=== PATIENT | female | born 1940 | race Caucasian/White ===

== ENCOUNTER 2018-06-15 09:19 | Emergency (ER) | payer OTHER ==
[~2018-06-15] VITALS: Ht 165.1 cm; Wt 59.0 kg
[2018-06-15 14:08] VITALS: BP 124/63
== END 2018-06-15 14:47 | disposition home or self-care (01) ==
LOC: ER 09:19
DX: S66.911A Strain of unspecified muscle, fascia and tendon at wrist and hand level, right hand, initial encounter (principal); R51 Headache; J44.9 Chronic obstructive pulmonary disease, unspecified; I10 Essential (primary) hypertension; F17.210 Nicotine dependence, cigarettes, uncomplicated; W22.8XXA Striking against or struck by other objects, initial encounter; Y93.89 Activity, other specified; Y92.89 Other specified places as the place of occurrence of the external cause; Y99.8 Other external cause status
CPT/HCPCS: 29125; 70450; 73090; 73110; 73200

== ENCOUNTER 2020-09-02 09:07 | Emergency (ER) | payer OTHER ==
[~2020-09-02] VITALS: Ht 165.1 cm; Wt 54.4 kg
[~2020-09-02 09:07] MED LIST: ASPI-543 PO; ATEN-60 PO; BIOT5TAB3 PO; CALCTAB62 PO; CHOL400L8 PO; CYA100I PO; HYDR-4833 PO; LORA2TAB89 PO; MAGN400T40 PO; PAR20T PO; ROSU5TAB5 PO; SACC1CAP3 PO; TRAZ100T3 PO
[2020-09-02 09:41] LABS: Basophils # (auto) 0 10 ^3/uL (0-0.2); Basophils % (auto) 0.2 % (0.0-2.0); Eosinophils # (auto) 0 10 ^3/uL (0-0.8); Eosinophils % (auto) 0.2 % (0.0-7.0); Hematocrit 40.2 % (36.0-46.0); Hemoglobin 12.8 g/dL (12.2-16.2); Lymphocytes % (auto) 7.6 % (10.0-50.0); Mean Corpuscular Hemoglobin 29.6 pg (28.0-32.0); Mean Corpuscular Hgb Conc. 31.9 g/dL (32.0-36.0); Mean Corpuscular Volume 92.5 fL (80.0-100.0); Monocytes # (auto) 1.9 10 ^3/uL (0-1.3); Monocytes % (auto) 13.6 % (0.0-12.0); Neutrophils # (auto) 10.6 10 ^3/uL (1.6-8.6); Neutrophils % (auto) 78.4 % (37.0-80.0); Platelet Count (auto) 233 10^3/uL (140-450); Red Blood Cells 4.34 10^6/uL (4.0-5.20); Red Cell Distribution Width 17.9 % (11.8-14.3); White Blood Cell 13.6 10^3/uL (4.4-10.8)
[2020-09-02 10:02] LABS: Alanine Aminotransferase 49 U/L (13-56); Albumin 4.5 g/dL (3.4-5.0); Anion Gap 14 (5-15); Aspartate Aminotransferase 68 U/L (15-37); BUN/Creatinine Ratio 28.8; Blood Urea Nitrogen 23 mg/dL (7-18); Calcium 8.6 mg/dL (8.5-10.1); Carbon Dioxide 17 mmol/L (21-32); Chloride 109 mmol/L (98-107); GFR African American 89 mL/min; GFR Non-African American 74 mL/min; Glucose 102 mg/dL (74-106); Potassium 4.1 mmol/L (3.5-5.1); Sodium 140 mmol/L (136-145)
[2020-09-02 10:08] LABS: Alkaline Phosphatase 96 U/L (45-117); Bilirubin, Total 1.2 mg/dL (0.2-1.0); Total Protein 7.5 g/dL (6.4-8.2)
[2020-09-02] MEDS ORDERED: BACITRACIN TOP OINT 1 UD PKG TOP ONE (11:30)
[2020-09-02] MEDS ORDERED: LIDOCAINE 2%HCL (LOCAL ANESTH.) INJ 20ML MDV ID ONE (11:30)
[2020-09-02] MEDS ORDERED: LORazepam 0.5 MG TAB PO ONE (11:45)
[2020-09-02 12:45] VITALS: BP 140/61
== END 2020-09-02 16:29 | disposition home or self-care (01) ==
LOC: ER 09:07
DX: S41.112A Laceration without foreign body of left upper arm, initial encounter (principal); M21.332 Wrist drop, left wrist; F10.10 Alcohol abuse, uncomplicated; J44.9 Chronic obstructive pulmonary disease, unspecified; I10 Essential (primary) hypertension; R41.82 Altered mental status, unspecified; F17.210 Nicotine dependence, cigarettes, uncomplicated; Z98.61 Coronary angioplasty status; W01.0XXA Fall on same level from slipping, tripping and stumbling without subsequent striking against object, initial encounter; Y93.89 Activity, other specified; Y92.098 Other place in other non-institutional residence as the place of occurrence of the external cause; Y99.8 Other external cause status
CPT/HCPCS: 12004; 29125; 36415; 70450; 80053; 80320; 84484; 85025

== ENCOUNTER 2020-11-12 11:25 | Inpatient (IN) | payer BC, OTHER ==
[~2020-11-12] VITALS: Ht 165.1 cm; Wt 59.7 kg
[2020-11-12] MEDS ORDERED: methylPREDNISolone SOD SUCC 125 MG/2 ML VL IV ONE (11:45)
[2020-11-12] MEDS ORDERED: AZITHROMYCIN 500MG/ 250ML 250 ML IV ONE (12:15)
[2020-11-12] MEDS ORDERED: REMDESIVIR PER PHARMACY 0 ML IV SCH ×2 (12:15→16:30)
[2020-11-12 12:28] LABS: Basophils # (auto) 0 10 ^3/uL (0-0.2); Basophils % (auto) 0.2 % (0.0-2.0); Eosinophils # (auto) 0.2 10 ^3/uL (0-0.8); Eosinophils % (auto) 1.6 % (0.0-7.0); Hemoglobin 12.8 g/dL (12.2-16.2); Lymphocytes # (auto) 0.6 10 ^3/uL (0.4-5.4); Lymphocytes % (auto) 4.2 % (10.0-50.0); Mean Corpuscular Hemoglobin 28.4 pg (28.0-32.0); Mean Corpuscular Hgb Conc. 32.7 g/dL (32.0-36.0); Mean Corpuscular Volume 86.8 fL (80.0-100.0); Monocytes # (auto) 1.2 10 ^3/uL (0-1.3); Monocytes % (auto) 9.1 % (0.0-12.0); Neutrophils # (auto) 11.6 10 ^3/uL (1.6-8.6); Neutrophils % (auto) 84.9 % (37.0-80.0); Platelet Count (auto) 377 10^3/uL (140-450); Red Cell Distribution Width 16.1 % (11.8-14.3); White Blood Cell 13.7 10^3/uL (4.4-10.8)
[2020-11-12 12:55] LABS: Albumin 2.4 g/dL (3.4-5.0); Calcium 8.4 mg/dL (8.5-10.1); Potassium 3.3 mmol/L (3.5-5.1)
[2020-11-12 12:58] LABS: Lactic Acid w/Reflex 2.1 mmol/L (0.4-2.0)
[2020-11-12 13:01] LABS: BUN/Creatinine Ratio 23.2; Bilirubin, Total 0.7 mg/dL (0.2-1.0); Total Protein 6.8 g/dL (6.4-8.2)
[2020-11-12] MEDS ORDERED: POTASSIUM CHL 20 Meq TABLET PO ONE (13:15)
[2020-11-12] MEDS ORDERED: MORPHINE SULF INJ 2 MG/ML SYRINGE 1ML IV PRN ×2 (16:30)
[2020-11-12] MEDS ORDERED: DOCUSATE SOD 100 MG CAP PO PRN (16:30)
[2020-11-12] MEDS ORDERED: NITROGLYCERIN 0.4 MG SL TAB SL PRN (16:30)
[2020-11-12] MEDS ORDERED: ALUM & MAG HYDROX-SIMETH LIQ(MAALOX) 30 ML PO PRN (16:30)
[2020-11-12] MEDS ORDERED: ACETAMINOPHEN 500 MG TAB PO PRN (16:30)
[2020-11-12 16:51] LABS: Magnesium 2.2 mg/dL (1.6-2.6)
[2020-11-12 17:00] LABS: CRP High Sensitivity 15.8 mg/dL (< 0.3)
[2020-11-12] MEDS ORDERED: IOHEXOL 350 MG/ML 100ML IJ ONE (17:00)
[2020-11-12] MEDS ORDERED: ONDANSETRON HCL 4 MG/2 ML VIAL ONE (21:58)
[2020-11-12] MEDS ORDERED: ENOXAPARIN SOD 40 MG/0.4 ML SYRINGE SC SCH (22:00)
[2020-11-12] MEDS: BUDESONIDE (INHALATION) 180 MCG IH IN SCH (22:00)
[2020-11-12] MEDS: DOXYCYCLINE 100MG/250ML 250 ML IV SCH (22:40)
[2020-11-12] MEDS: FAMOTIDINE (10MG/ML) 2ML VL IV SCH (22:40)
[2020-11-12] MEDS: ENOXAPARIN SOD 60 MG/0.6 ML SYRINGE SC SCH (22:40)
[2020-11-12] MEDS ORDERED: ONDANSETRON HCL 4 MG/2 ML VIAL IV PRN (23:15)
[2020-11-13 04:35] LABS: Urine Bacteria FEW /hpf (None Seen); Urine Blood Negative /uL (Negative); Urine WBC 6 /hpf (0 - 5)
[2020-11-13 04:48] LABS: Urine Specific Gravity > 1.050 (1.001-1.035)
[2020-11-13] MEDS: BUDESONIDE (INHALATION) 180 MCG IH IN SCH ×2 (06:50→20:20)
[2020-11-13 07:59] LABS: Basophils # (auto) 0 10 ^3/uL (0-0.2); Eosinophils # (auto) 0 10 ^3/uL (0-0.8); Eosinophils % (auto) 0.1 % (0.0-7.0); Hematocrit 34.3 % (36.0-46.0); Hemoglobin 11.3 g/dL (12.2-16.2); Lymphocytes # (auto) 0.5 10 ^3/uL (0.4-5.4); Mean Corpuscular Hemoglobin 28.4 pg (28.0-32.0); Mean Corpuscular Volume 85.9 fL (80.0-100.0); Monocytes # (auto) 0.9 10 ^3/uL (0-1.3); Monocytes % (auto) 6.6 % (0.0-12.0); Neutrophils # (auto) 11.9 10 ^3/uL (1.6-8.6); Neutrophils % (auto) 89.3 % (37.0-80.0); Nucleated Red Blood Cells % 0.1 %; Platelet Count (auto) 355 10^3/uL (140-450); Red Cell Distribution Width 15.9 % (11.8-14.3); White Blood Cell 13.4 10^3/uL (4.4-10.8)
[2020-11-13 08:21] LABS: Albumin 2.2 g/dL (3.4-5.0); BUN/Creatinine Ratio 35.3; Bilirubin, Total 0.5 mg/dL (0.2-1.0); Calcium 8.2 mg/dL (8.5-10.1); Total Protein 6.1 g/dL (6.4-8.2)
[2020-11-13] MEDS: FAMOTIDINE (10MG/ML) 2ML VL IV SCH (10:23)
[2020-11-13] MEDS: DexAMETHasone SOD PHOS 10MG/1ML VIAL INJ IV SCH (10:23)
[2020-11-13] MEDS: CHOLECALCIFEROL (VITD3) 2,000 UNIT CAP PO SCH (10:24)
[2020-11-13] MEDS: ZINC SULFATE 220mg CAP or TAB PO SCH (10:24)
[2020-11-13] MEDS: ASCORBIC ACID 1,000 MG TAB PO SCH (10:24)
[2020-11-13] MEDS: ENOXAPARIN SOD 60 MG/0.6 ML SYRINGE SC SCH ×2 (10:24→22:43)
[2020-11-13] MEDS: DOXYCYCLINE 100MG/250ML 250 ML IV SCH ×2 (10:24→22:58)
[2020-11-13] MEDS ORDERED: CLOP75TA70 PO (11:29)
[2020-11-13] MEDS ORDERED: HYDR-392 PO (11:31)
[2020-11-13] MEDS ORDERED: CYAN1TAB11 PO (11:35)
[2020-11-13] MEDS ORDERED: ASCO500T5 PO (11:35)
[2020-11-13] MEDS ORDERED: CHOL20009 PO (11:35)
[2020-11-13] MEDS ORDERED: THIA100T10 PO (11:42)
[2020-11-13] MEDS ORDERED: REMDESIVIR 200 MG in NS 210ml LOADING DOSE ADULT IV ONE (15:00)
[2020-11-13 19:30] VITALS: BP 118/59
[2020-11-13] MEDS: ALBUTEROL SULF HFA 90MCG INH 200DOSE IN PRN (20:20)
[2020-11-13] MEDS: HYDROcodone-ACET 5/325MG TAB PO PRN (23:06)
[2020-11-14 00:47] VITALS: BP 99/49
[2020-11-14] MEDS: BUDESONIDE (INHALATION) 180 MCG IH IN SCH ×2 (07:07→20:35)
[2020-11-14] MEDS: ALBUTEROL SULF HFA 90MCG INH 200DOSE IN PRN (07:07)
[2020-11-14 07:53] LABS: INR 1.07 (0.9-1.15); Partial Thromboplastin Time 25.5 sec (23.0-31.2)
[2020-11-14 07:59] LABS: Basophils # (auto) 0 10 ^3/uL (0-0.2); Basophils % (auto) 0.1 % (0.0-2.0); Eosinophils # (auto) 0 10 ^3/uL (0-0.8); Eosinophils % (auto) 0.1 % (0.0-7.0); Hemoglobin 11.8 g/dL (12.2-16.2); Lymphocytes # (auto) 0.4 10 ^3/uL (0.4-5.4); Lymphocytes % (auto) 2.4 % (10.0-50.0); Mean Corpuscular Hgb Conc. 32.3 g/dL (32.0-36.0); Monocytes # (auto) 1.2 10 ^3/uL (0-1.3); Neutrophils # (auto) 14.9 10 ^3/uL (1.6-8.6); Red Cell Distribution Width 15.8 % (11.8-14.3)
[2020-11-14 08:00] VITALS: BP 135/58
[2020-11-14 08:00] LABS: Hematocrit 36.4 % (36.0-46.0); Mean Corpuscular Hemoglobin 28.1 pg (28.0-32.0); Monocytes % (auto) 7.5 % (0.0-12.0); Neutrophils % (auto) 89.9 % (37.0-80.0); Platelet Count (auto) 448 10^3/uL (140-450); Red Blood Cells 4.19 10^6/uL (4.0-5.20); White Blood Cell 16.5 10^3/uL (4.4-10.8)
[2020-11-14 09:00] VITALS: BP 135/58
[2020-11-14] MEDS: DexAMETHasone SOD PHOS 10MG/1ML VIAL INJ IV SCH (09:10)
[2020-11-14] MEDS: FAMOTIDINE (10MG/ML) 2ML VL IV SCH (09:10)
[2020-11-14] MEDS: ZINC SULFATE 220mg CAP or TAB PO SCH (09:11)
[2020-11-14] MEDS: CHOLECALCIFEROL (VITD3) 2,000 UNIT CAP PO SCH (09:11)
[2020-11-14] MEDS: ASCORBIC ACID 1,000 MG TAB PO SCH (09:11)
[2020-11-14] MEDS: ENOXAPARIN SOD 60 MG/0.6 ML SYRINGE SC SCH ×2 (09:11→21:39)
[2020-11-14] MEDS: DOXYCYCLINE 100MG/250ML 250 ML IV SCH ×2 (10:36→21:38)
[2020-11-14] MEDS: HYDROcodone-ACET 5/325MG TAB PO PRN ×2 (13:27→21:42)
[2020-11-14 14:48] LABS: Albumin 2.4 g/dL (3.4-5.0); Calcium 8.4 mg/dL (8.5-10.1); Potassium 4.1 mmol/L (3.5-5.1)
[2020-11-14 14:53] LABS: BUN/Creatinine Ratio 30.9; Bilirubin, Total 0.6 mg/dL (0.2-1.0); Total Protein 6.4 g/dL (6.4-8.2)
[2020-11-14 16:00] VITALS: BP 132/51
[2020-11-14] MEDS: REMDESIVIR 100mg 100 MG in SODIUM CHL 0.9% 230 ML IV SCH (16:03)
[2020-11-14 16:12] VITALS: BP 132/51
[2020-11-14] MEDS: guaiFENesin-DM 100/10mg/5ml SYR PO PRN ×2 (17:49→21:44)
[2020-11-14] MEDS: ALBUTEROL SULF HFA 90MCG INH 200DOSE IN SCH (20:35)
[2020-11-15] VITALS: BP 118/55
[2020-11-15] MEDS: guaiFENesin-DM 100/10mg/5ml SYR PO PRN ×2 (06:36→21:20)
[2020-11-15] MEDS: HYDROcodone-ACET 5/325MG TAB PO PRN ×3 (06:36→21:21)
[2020-11-15] MEDS: ALBUTEROL SULF HFA 90MCG INH 200DOSE IN SCH ×3 (06:52→22:19)
[2020-11-15] MEDS: BUDESONIDE (INHALATION) 180 MCG IH IN SCH ×2 (06:52→22:19)
[2020-11-15 07:57] VITALS: BP 136/61
[2020-11-15 08:42] LABS: Basophils # (auto) 0 10 ^3/uL (0-0.2); Eosinophils # (auto) 0.1 10 ^3/uL (0-0.8); Lymphocytes # (auto) 0.5 10 ^3/uL (0.4-5.4); Platelet Count (auto) 475 10^3/uL (140-450)
[2020-11-15 08:47] LABS: Eosinophils % (auto) 0.6 % (0.0-7.0); Hematocrit 38.1 % (36.0-46.0); Hemoglobin 12.5 g/dL (12.2-16.2); Lymphocytes % (auto) 2.9 % (10.0-50.0); Mean Corpuscular Hemoglobin 28.2 pg (28.0-32.0); Mean Corpuscular Hgb Conc. 32.7 g/dL (32.0-36.0); Mean Corpuscular Volume 86.1 fL (80.0-100.0); Monocytes # (auto) 1.2 10 ^3/uL (0-1.3); Monocytes % (auto) 6.9 % (0.0-12.0); Neutrophils # (auto) 15.3 10 ^3/uL (1.6-8.6); Neutrophils % (auto) 89.6 % (37.0-80.0); Red Blood Cells 4.42 10^6/uL (4.0-5.20); Red Cell Distribution Width 15.7 % (11.8-14.3); White Blood Cell 17.1 10^3/uL (4.4-10.8)
[2020-11-15 09:06] LABS: INR 1.12 (0.9-1.15); Partial Thromboplastin Time 25.3 sec (23.0-31.2)
[2020-11-15 09:08] LABS: Albumin 2.6 g/dL (3.4-5.0); Calcium 8.4 mg/dL (8.5-10.1); Potassium 3.5 mmol/L (3.5-5.1)
[2020-11-15 09:12] LABS: BUN/Creatinine Ratio 28.3; Bilirubin, Total 0.7 mg/dL (0.2-1.0); Total Protein 6.6 g/dL (6.4-8.2)
[2020-11-15] MEDS: DOXYCYCLINE 100MG/250ML 250 ML IV SCH ×2 (11:49→21:20)
[2020-11-15] MEDS: DexAMETHasone SOD PHOS 10MG/1ML VIAL INJ IV SCH (11:49)
[2020-11-15] MEDS: ZINC SULFATE 220mg CAP or TAB PO SCH (11:49)
[2020-11-15] MEDS: FAMOTIDINE (10MG/ML) 2ML VL IV SCH (11:49)
[2020-11-15] MEDS: CHOLECALCIFEROL (VITD3) 2,000 UNIT CAP PO SCH (11:50)
[2020-11-15] MEDS: ASCORBIC ACID 1,000 MG TAB PO SCH (11:50)
[2020-11-15] MEDS: ENOXAPARIN SOD 60 MG/0.6 ML SYRINGE SC SCH ×2 (11:50→21:20)
[2020-11-15] MEDS: REMDESIVIR 100mg 100 MG in SODIUM CHL 0.9% 230 ML IV SCH (14:36)
[2020-11-15 16:03] VITALS: BP 135/69
[2020-11-16] VITALS: BP 116/63
[2020-11-16] MEDS: guaiFENesin-DM 100/10mg/5ml SYR PO PRN ×3 (04:53→22:30)
[2020-11-16] MEDS: HYDROcodone-ACET 5/325MG TAB PO PRN ×3 (04:54→22:31)
[2020-11-16] MEDS: ALBUTEROL SULF HFA 90MCG INH 200DOSE IN SCH ×3 (07:45→19:59)
[2020-11-16] MEDS: BUDESONIDE (INHALATION) 180 MCG IH IN SCH ×2 (07:45→19:59)
[2020-11-16 08:00] VITALS: BP 140/69
[2020-11-16 08:32] LABS: Basophils # (auto) 0.1 10 ^3/uL (0-0.2); Basophils % (auto) 0.3 % (0.0-2.0); Eosinophils # (auto) 0.2 10 ^3/uL (0-0.8); Eosinophils % (auto) 0.9 % (0.0-7.0); Hematocrit 35.4 % (36.0-46.0); Hemoglobin 11.9 g/dL (12.2-16.2); Lymphocytes # (auto) 0.6 10 ^3/uL (0.4-5.4); Lymphocytes % (auto) 3.7 % (10.0-50.0); Mean Corpuscular Hemoglobin 28.7 pg (28.0-32.0); Mean Corpuscular Hgb Conc. 33.6 g/dL (32.0-36.0); Mean Corpuscular Volume 85.5 fL (80.0-100.0); Monocytes # (auto) 1.3 10 ^3/uL (0-1.3); Monocytes % (auto) 7.6 % (0.0-12.0); Neutrophils # (auto) 15.3 10 ^3/uL (1.6-8.6); Neutrophils % (auto) 87.5 % (37.0-80.0); Platelet Count (auto) 412 10^3/uL (140-450); Red Blood Cells 4.14 10^6/uL (4.0-5.20); Red Cell Distribution Width 15.8 % (11.8-14.3); White Blood Cell 17.4 10^3/uL (4.4-10.8)
[2020-11-16 09:02] LABS: Potassium 3.8 mmol/L (3.5-5.1)
[2020-11-16 09:18] LABS: Albumin 2.3 g/dL (3.4-5.0); BUN/Creatinine Ratio 39.5; Bilirubin, Total 0.7 mg/dL (0.2-1.0); CRP High Sensitivity 12.6 mg/dL (< 0.3); Calcium 8.2 mg/dL (8.5-10.1); Total Protein 6.4 g/dL (6.4-8.2)
[2020-11-16] MEDS: DexAMETHasone SOD PHOS 10MG/1ML VIAL INJ IV SCH (10:36)
[2020-11-16] MEDS: CHOLECALCIFEROL (VITD3) 2,000 UNIT CAP PO SCH (10:36)
[2020-11-16] MEDS: FAMOTIDINE (10MG/ML) 2ML VL IV SCH (10:36)
[2020-11-16] MEDS: ASCORBIC ACID 1,000 MG TAB PO SCH (10:36)
[2020-11-16] MEDS: ZINC SULFATE 220mg CAP or TAB PO SCH (10:36)
[2020-11-16] MEDS: DOXYCYCLINE 100MG/250ML 250 ML IV SCH ×2 (10:37→22:30)
[2020-11-16] MEDS: ENOXAPARIN SOD 60 MG/0.6 ML SYRINGE SC SCH ×2 (10:38→22:29)
[2020-11-16 15:52] LABS: Albumin 2.4 g/dL (3.4-5.0); Calcium 8.2 mg/dL (8.5-10.1); Potassium 3.9 mmol/L (3.5-5.1)
[2020-11-16 15:55] LABS: BUN/Creatinine Ratio 30.4; Bilirubin, Total 0.8 mg/dL (0.2-1.0); Total Protein 6.4 g/dL (6.4-8.2)
[2020-11-16 16:00] VITALS: BP 152/68
[2020-11-16] MEDS: REMDESIVIR 100mg 100 MG in SODIUM CHL 0.9% 230 ML IV SCH (17:00)
[2020-11-17] MEDS: HYDROcodone-ACET 5/325MG TAB PO PRN ×3 (02:27→19:28)
[2020-11-17] MEDS: guaiFENesin-DM 100/10mg/5ml SYR PO PRN ×2 (02:27→19:29)
[2020-11-17 05:40] LABS: Basophils # (auto) 0 10 ^3/uL (0-0.2); Basophils % (auto) 0.2 % (0.0-2.0); Eosinophils # (auto) 0.1 10 ^3/uL (0-0.8); Eosinophils % (auto) 0.8 % (0.0-7.0); Hematocrit 35.8 % (36.0-46.0); Hemoglobin 11.5 g/dL (12.2-16.2); Lymphocytes # (auto) 0.6 10 ^3/uL (0.4-5.4); Lymphocytes % (auto) 3.8 % (10.0-50.0); Mean Corpuscular Hemoglobin 27.3 pg (28.0-32.0); Mean Corpuscular Hgb Conc. 32.1 g/dL (32.0-36.0); Mean Corpuscular Volume 85.2 fL (80.0-100.0); Monocytes # (auto) 1.2 10 ^3/uL (0-1.3); Monocytes % (auto) 7.8 % (0.0-12.0); Neutrophils # (auto) 13.6 10 ^3/uL (1.6-8.6); Neutrophils % (auto) 87.4 % (37.0-80.0); Platelet Count (auto) 420 10^3/uL (140-450); Red Blood Cells 4.21 10^6/uL (4.0-5.20); White Blood Cell 15.6 10^3/uL (4.4-10.8)
[2020-11-17 05:58] LABS: Albumin 2.1 g/dL (3.4-5.0); Calcium 7.8 mg/dL (8.5-10.1); Potassium 3.7 mmol/L (3.5-5.1)
[2020-11-17 06:01] LABS: BUN/Creatinine Ratio 33.3; Bilirubin, Total 0.6 mg/dL (0.2-1.0); Total Protein 5.7 g/dL (6.4-8.2)
[2020-11-17] MEDS: BUDESONIDE (INHALATION) 180 MCG IH IN SCH ×2 (07:06→19:21)
[2020-11-17] MEDS: ALBUTEROL SULF HFA 90MCG INH 200DOSE IN SCH ×3 (07:06→19:21)
[2020-11-17 08:00] VITALS: BP 158/76
[2020-11-17] MEDS: CHOLECALCIFEROL (VITD3) 2,000 UNIT CAP PO SCH (10:02)
[2020-11-17] MEDS: ENOXAPARIN SOD 60 MG/0.6 ML SYRINGE SC SCH ×2 (10:03→21:15)
[2020-11-17] MEDS: FAMOTIDINE (10MG/ML) 2ML VL IV SCH (10:03)
[2020-11-17] MEDS: ASCORBIC ACID 1,000 MG TAB PO SCH (10:03)
[2020-11-17] MEDS: DexAMETHasone SOD PHOS 10MG/1ML VIAL INJ IV SCH (10:03)
[2020-11-17] MEDS: ZINC SULFATE 220mg CAP or TAB PO SCH (10:03)
[2020-11-17] MEDS: DOXYCYCLINE 100MG/250ML 250 ML IV SCH (10:03)
[2020-11-17 14:57] LABS: Albumin 2.2 g/dL (3.4-5.0)
[2020-11-17 15:01] LABS: BUN/Creatinine Ratio 31.1; Bilirubin, Total 0.7 mg/dL (0.2-1.0); Total Protein 6.2 g/dL (6.4-8.2)
[2020-11-17] MEDS: REMDESIVIR 100mg 100 MG in SODIUM CHL 0.9% 230 ML IV SCH (15:31)
[2020-11-17 16:00] VITALS: BP 138/69
[2020-11-17] MEDS: ASPirin-EC 81 mg tab PO SCH (21:15)
[2020-11-18] VITALS: BP 139/65
[2020-11-18] MEDS: HYDROcodone-ACET 5/325MG TAB PO PRN ×4 (01:56→20:56)
[2020-11-18] MEDS: guaiFENesin-DM 100/10mg/5ml SYR PO PRN ×3 (01:56→20:55)
[2020-11-18] MEDS: BUDESONIDE (INHALATION) 180 MCG IH IN SCH ×2 (07:39→22:00)
[2020-11-18] MEDS: ALBUTEROL SULF HFA 90MCG INH 200DOSE IN SCH ×2 (07:39→22:00)
[2020-11-18 08:00] VITALS: BP 149/71
[2020-11-18 08:30] LABS: Basophils # (auto) 0 10 ^3/uL (0-0.2); Basophils % (auto) 0.2 % (0.0-2.0); Eosinophils # (auto) 0 10 ^3/uL (0-0.8); Eosinophils % (auto) 0.2 % (0.0-7.0); Hemoglobin 12.2 g/dL (12.2-16.2); Lymphocytes # (auto) 0.7 10 ^3/uL (0.4-5.4)
[2020-11-18 08:31] LABS: Hematocrit 37.1 % (36.0-46.0); Mean Corpuscular Hemoglobin 28.1 pg (28.0-32.0); Mean Corpuscular Volume 85.3 fL (80.0-100.0); Monocytes # (auto) 1.3 10 ^3/uL (0-1.3); Monocytes % (auto) 11.2 % (0.0-12.0); Neutrophils # (auto) 9.8 10 ^3/uL (1.6-8.6); Neutrophils % (auto) 82.4 % (37.0-80.0); Nucleated Red Blood Cells % 0.1 %; Platelet Count (auto) 466 10^3/uL (140-450); Red Blood Cells 4.34 10^6/uL (4.0-5.20); White Blood Cell 11.8 10^3/uL (4.4-10.8)
[2020-11-18 09:09] LABS: Albumin 2.3 g/dL (3.4-5.0); BUN/Creatinine Ratio 46.2; Calcium 8.1 mg/dL (8.5-10.1)
[2020-11-18 09:11] LABS: Bilirubin, Total 0.5 mg/dL (0.2-1.0); Total Protein 6.3 g/dL (6.4-8.2)
[2020-11-18] MEDS: FAMOTIDINE (10MG/ML) 2ML VL IV SCH (10:00)
[2020-11-18] MEDS: CHOLECALCIFEROL (VITD3) 2,000 UNIT CAP PO SCH (10:00)
[2020-11-18] MEDS: ASCORBIC ACID 1,000 MG TAB PO SCH (10:00)
[2020-11-18] MEDS: DexAMETHasone SOD PHOS 10MG/1ML VIAL INJ IV SCH (10:00)
[2020-11-18] MEDS: ZINC SULFATE 220mg CAP or TAB PO SCH (10:00)
[2020-11-18] MEDS: ENOXAPARIN SOD 60 MG/0.6 ML SYRINGE SC SCH ×2 (10:00→21:19)
[2020-11-18 16:00] VITALS: BP 157/75
[2020-11-18] MEDS: ASPirin-EC 81 mg tab PO SCH (21:19)
[2020-11-18] MEDS ORDERED: ATORVASTATIN 20 MG TAB PO SCH (23:00)
[2020-11-19] VITALS: BP 139/74
[2020-11-19 00:30] VITALS: BP 139/74
[2020-11-19] MEDS: guaiFENesin-DM 100/10mg/5ml SYR PO PRN (06:32)
[2020-11-19] MEDS: HYDROcodone-ACET 5/325MG TAB PO PRN (06:32)
[2020-11-19] MEDS: ALBUTEROL SULF HFA 90MCG INH 200DOSE IN SCH ×3 (06:46→22:00)
[2020-11-19] MEDS: BUDESONIDE (INHALATION) 180 MCG IH IN SCH ×2 (06:46→22:00)
[2020-11-19 08:00] VITALS: BP 147/63
[2020-11-19] MEDS: ASCORBIC ACID 1,000 MG TAB PO SCH (10:00)
[2020-11-19] MEDS: ENOXAPARIN SOD 60 MG/0.6 ML SYRINGE SC SCH (10:00)
[2020-11-19] MEDS: CHOLECALCIFEROL (VITD3) 2,000 UNIT CAP PO SCH (10:00)
[2020-11-19] MEDS ORDERED: THIAMINE HCL 100 MG TAB PO SCH (10:00)
[2020-11-19] MEDS: DexAMETHasone SOD PHOS 10MG/1ML VIAL INJ IV SCH (10:00)
[2020-11-19] MEDS: FAMOTIDINE (10MG/ML) 2ML VL IV SCH (10:00)
[2020-11-19] MEDS: ZINC SULFATE 220mg CAP or TAB PO SCH (10:00)
[2020-11-19] MEDS ORDERED: PARoxetine 20 MG TAB PO SCH (10:00)
[2020-11-19] MEDS ORDERED: ATENOLOL 25 MG TAB PO SCH (10:00)
== END 2020-11-19 09:40 | disposition hospice, home (50) | DRG 177 ==
LOC: ER 11:25 → TELE 11:26 → TELE-WESTW 11-13 18:55
PROVIDERS: ADMIT Hospitalist; ATTEND Hospitalist
PROC: XW033E5 Introduction of Remdesivir Anti-infective into Peripheral Vein, Percutaneous Approach, New Technology Group 5 (ICD-10-PCS; principal; 2020-11-12)
DX: U07.1 COVID-19 (principal); J12.82 Pneumonia due to coronavirus disease 2019; I26.99 Other pulmonary embolism without acute cor pulmonale; J96.21 Acute and chronic respiratory failure with hypoxia; J44.1 Chronic obstructive pulmonary disease with (acute) exacerbation; J44.0 Chronic obstructive pulmonary disease with (acute) lower respiratory infection; E78.5 Hyperlipidemia, unspecified; I10 Essential (primary) hypertension; I25.10 Atherosclerotic heart disease of native coronary artery without angina pectoris; D64.9 Anemia, unspecified; F17.200 Nicotine dependence, unspecified, uncomplicated; F32.9 Major depressive disorder, single episode, unspecified; F41.9 Anxiety disorder, unspecified; Z90.49 Acquired absence of other specified parts of digestive tract; Z79.01 Long term (current) use of anticoagulants; Z82.49 Family history of ischemic heart disease and other diseases of the circulatory system; Z99.81 Dependence on supplemental oxygen
CPT/HCPCS: 36415; 36600; 71045; 71275; 80053; 81001; 82728; 82805; 83605; 83615; 83735; 83880; 84484; 85025; 85379; 85610; 85730; 86141; 87040; 87426; 93005; 94640; 96365; 96366; 96375; 99291; G0378; J1100; J2405; J3490; J7042